=== PATIENT | female | born 1990 | race African-American/Black ===

== ENCOUNTER 2023-09-21 10:18 | Outpatient (CLI) | payer BC, SELFPAY ==
--- NOTE | ~2023-09-21 | US_ITS ---
EXAMINATION: US soft tissue upper back DATE: 09/21/2023 10:37 INDICATION: Left upper back mass. Mid back pain. TECHNIQUE: Multiple grayscale and Doppler ultrasound images of the upper back were obtained. COMPARISON: None FINDINGS: There is no abnormal mass in the patient's area of concern in the superior posterior thorax . IMPRESSION: 1. No abnormal mass in the patient's area of concern in the superior posterior thorax. Reviewed, dictated and finalized at location A.
== END 2023-09-21 10:19 ==
PROVIDERS: PCP Chiropractor; Visit Provider Chiropractor
DX: M54.6 Pain in thoracic spine (principal)
CPT/HCPCS: 76604